=== PATIENT | female | born 1945 | race Caucasian/White ===

== ENCOUNTER → 2016-09-06 | Outpatient (CLI) | payer OTHER, MEDICARE | LOC: HEART 5 13:33 | DX: R06.02 Shortness of breath (principal); J42 Unspecified chronic bronchitis; Z87.891 Personal history of nicotine dependence | CPT/HCPCS: 94060; 94729 ==

== ENCOUNTER 2021-02-18 14:27 | Inpatient (IN) | payer MEDICARE ==
[~2021-02-18] VITALS: Ht 152.4 cm; Wt 59.1 kg
[2021-02-18 15:49] LABS: HEMOGLOBIN 13.5 gm/dl (12.3-15.3); RED BLOOD COUNT 4.37 M/UL (4.00-5.10); WHITE BLOOD COUNT 15.9 K/UL (4.5-11.0)
[2021-02-18 16:23] LABS: BUN/CREATININE RATIO 51 (0-10)
[2021-02-19] MEDS ORDERED: LOPRESSOR 50 MG50 MG PO (04:42)
[2021-02-19] MEDS ORDERED: HYDROCODON-ACE1 EAC4 PO (04:43)
[2021-02-19] MEDS ORDERED: ONDANSETRON HCL4 MG PO (04:44)
[2021-02-19 08:33] LABS: HEMOGLOBIN 12.5 gm/dl (12.3-15.3); RED BLOOD COUNT 4.04 M/UL (4.00-5.10); WHITE BLOOD COUNT 14.1 K/UL (4.5-11.0)
[2021-02-19 08:52] LABS: BUN/CREATININE RATIO 33 (0-10)
[2021-02-19] MEDS ORDERED: CITALOPRAM HBR10 MG PO (11:43)
[2021-02-19] MEDS ORDERED: ASPIRIN81 MG PO (12:02)
[2021-02-19] MEDS ORDERED: VITAMIN D325 MCG PO (12:03)
[2021-02-19] MEDS ORDERED: CRESTOR20 MG PO (12:04)
[2021-02-19] MEDS ORDERED: LEVOTHYROXINE125 MCG PO (12:04)
[2021-02-19] MEDS ORDERED: LANTUS SOL100 UNIT/1 SQ (12:05)
[2021-02-19] MEDS ORDERED: HUMALOG100 UNIT/3 SC (12:07)
[2021-02-19] MEDS ORDERED: CALCIUM CARBON600 M1 PO (12:07)
[2021-02-19] MEDS ORDERED: BALSAM PERU-CAS60 GM TP (12:08)
[2021-02-19] MEDS ORDERED: NITROFURANTOIN100 M1 PO (12:09)
[2021-02-19] MEDS ORDERED: CEFDINIR300 MG PO ×2 (12:11→12:12)
[2021-02-20 06:27] LABS: HEMOGLOBIN 11.4 gm/dl (12.3-15.3); RED BLOOD COUNT 3.76 M/UL (4.00-5.10); WHITE BLOOD COUNT 14.1 K/UL (4.5-11.0)
[2021-02-20 06:43] LABS: BUN/CREATININE RATIO 21 (0-10)
--- NOTE | 2021-02-20 14:51 | NUR ---
SPOKE WITH CONSUELO WITH PULMONOLOGY REGARDING A NEW CONSULT. THE PATIENT IS DNR/DNI, BUT HOSPITALIST WOULD LIKE TO SEE IN PULMONOLOGY WOULD CONSIDER SEEING THE PATIENT BECAUSE SHE IS NOT COVID POSITIVE, HAS A HX OF PULMONARY FIBROSIS, THE PATIENT HAD A WITNESSED ASPIRATIION YESTERDAY, AND IS SUDDENLY DECOMPENSATING. CONSUELO SAYS THAT SHE WILL LET THE MASTER LAY OUT SPECIALIST KNOW.
[2021-02-21 06:50] LABS: HEMOGLOBIN 11.8 gm/dl (12.3-15.3); RED BLOOD COUNT 3.76 M/UL (4.00-5.10); WHITE BLOOD COUNT 15.2 K/UL (4.5-11.0)
[2021-02-21 07:09] LABS: BUN/CREATININE RATIO 20 (0-10)
[2021-02-21 15:10] LABS: BUN/CREATININE RATIO 20 (0-10)
--- NOTE | 2021-02-21 16:19 | NUR ---
SPOKE WITH FISHING ROD MECHANIC Celia ABOUT NEW CONSULT. WHO RECOMMENDED CHANGING THE BIPAP SETTINGS. WITH PATIENT BEING A DNR/DNI THEY WOULD NOT BE ABLE TO SEE HER TODAY, AND SAID THEY WOULD TRY TO SEE TOMORROW. SPOKE TO HOSPITALIST AFTER AND SHE AGREED WITH CHANGING THE SETTINGS OF THE BIPAP.
--- NOTE | 2021-02-22 00:31 | NUR ---
2008 KATHRYN WAS CALLED TO BE INFORMED OF 'S CONDITION. ADVERTISING JOB TITLES HAD APPROVED FOR VISITORS TO COME. KATHRYN ASKED ME TO CALL HIS DAUGHTER, SUNG. 2011 SUNG WAS CALLED AND MADE AWARE OF MOTHER'S CONDITION AND WAS TOLD SHE CAN COME AND VISIT IF SHE WANTS TO. AROUND 2029, THE SON ELVIS SHOWED UP AND PATIENT WAS 99% ON BIPAP, HR IN THE 90S. , DAUGHTER, AND SON IN LAW THEN ARRIVED. PATIENT STARTED TO DESAT TO 68% AND HR DROP TO 30-40S. I ASKED THE SON IF THEY WERE STILL WANTING HER TO BE DNR; THAT IS WHAT WAS ON RECORD. THE FAMILY WAS CONFUSED TO WHOM MADE THE DNR DECISION. THE PATIENT WAS CONFUSED ON ARRIVAL WELL DURING THE HOSPITAL STAY AND FAMILY STATES THEY DID NOT WISH FOR HER TO BE A DNR AND TO CHANGE HER TO A FULL CODE. AT THIS TIME, HER HEART STOPPED. CODE CALLED AND CPR INITATED. SEE CODE SHEET. PATIENT TRANSFERRED TO ROOM 210 AND REPORT GIVEN TO ALONA AYALA.
[2021-02-22 02:20] LABS: BUN/CREATININE RATIO 19 (0-10)
[2021-02-22 08:11] LABS: HEMOGLOBIN 13.2 gm/dl (12.3-15.3)
[2021-02-22 08:15] LABS: RED BLOOD COUNT 4.36 M/UL (4.00-5.10); WHITE BLOOD COUNT 35.7 K/UL (4.5-11.0)
== END 2021-02-22 17:00 | disposition expired | DRG 208 ==
LOC: ER1 14:27 → CDU 18:31 → PROG CARE 18:31 → CCU 02-21 23:45
PROVIDERS: Internal Medicine; Nurse Practitioner; ADMIT Internal Medicine
PROC: 5A09457 Assistance with Respiratory Ventilation, 24-96 Consecutive Hours, Continuous Positive Airway Pressure (ICD-10-PCS; principal; 2021-02-18)
PROC: 5A1935Z Respiratory Ventilation, Less than 24 Consecutive Hours (ICD-10-PCS; 2021-02-22)
PROC: 0BH17EZ Insertion of Endotracheal Airway into Trachea, Via Natural or Artificial Opening (ICD-10-PCS; 2021-02-22)
PROC: 3E033XZ Introduction of Vasopressor into Peripheral Vein, Percutaneous Approach (ICD-10-PCS; 2021-02-22)
PROC: 5A12012 Performance of Cardiac Output, Single, Manual (ICD-10-PCS; 2021-02-22)
DX: J80 Acute respiratory distress syndrome (principal); I21.4 Non-ST elevation (NSTEMI) myocardial infarction; A41.9 Sepsis, unspecified organism; R65.21 Severe sepsis with septic shock; J69.0 Pneumonitis due to inhalation of food and vomit; I50.33 Acute on chronic diastolic (congestive) heart failure; I21.A1 Myocardial infarction type 2; S32.591A Other specified fracture of right pubis, initial encounter for closed fracture; N30.00 Acute cystitis without hematuria; E46 Unspecified protein-calorie malnutrition; E87.3 Alkalosis; E87.1 Hypo-osmolality and hyponatremia; Z66 Do not resuscitate; I46.2 Cardiac arrest due to underlying cardiac condition; I25.10 Atherosclerotic heart disease of native coronary artery without angina pectoris; Z20.822 Contact with and (suspected) exposure to COVID-19; E78.5 Hyperlipidemia, unspecified; E88.09 Other disorders of plasma-protein metabolism, not elsewhere classified; R74.8 Abnormal levels of other serum enzymes; F03.90 Unspecified dementia, unspecified severity, without behavioral disturbance, psychotic disturbance, mood disturbance, and anxiety; R53.81 Other malaise; E11.65 Type 2 diabetes mellitus with hyperglycemia; E03.9 Hypothyroidism, unspecified; J84.10 Pulmonary fibrosis, unspecified; R74.01 Elevation of levels of liver transaminase levels; I27.20 Pulmonary hypertension, unspecified; I11.0 Hypertensive heart disease with heart failure; L89.309 Pressure ulcer of unspecified buttock, unspecified stage; M70.61 Trochanteric bursitis, right hip; R94.5 Abnormal results of liver function studies; Z95.1 Presence of aortocoronary bypass graft; Z82.49 Family history of ischemic heart disease and other diseases of the circulatory system; Z79.82 Long term (current) use of aspirin; Z79.899 Other long term (current) drug therapy; Z91.81 History of falling; Z51.5 Encounter for palliative care
CPT/HCPCS: ECHO; 36415; 36600; 51701; 70450; 71045; 72125; 73522; 80048; 80053; 80061; 80307; 81001; 82550; 82553; 82803; 82962; 83036; 83605; 83735; 83874; 83880; 84132; 84439; 84443; 84484; 85025; 85027; 85379; 85730; 87040; 92526; 92610; 93005; 93306; 93970; 94660; 94760; 96374; 96375; 99285; A6212; J0132; J0171; J0461; J0696; J1120; J1335; J1644; J1650; J1940; J2370; J2704; J3370; J3475; J3480; J7050; J7060; J7070; Q9967; U0002